=== PATIENT | male | born 1965 | race Hispanic/Latino ===

== ENCOUNTER 2024-04-30 17:46 | Emergency (ER) | payer OTHER, BC ==
[~2024-04-30] VITALS: Ht 182.9 cm; Wt 99.8 kg
[2024-04-30] MEDS ORDERED: KETO10TA2 PO (19:23)
[2024-04-30] MEDS ORDERED: METH-662 PO (19:23)
[2024-04-30] MEDS: morPHINE 2 MG SYG IVP ONE (19:27)
[2024-04-30] MEDS: ketOROlac 15MG/ML VIAL (15MG/ML) IV ONE (19:27)
[2024-04-30] MEDS: ORPHENADRINE 60MG/2ML IVP ONE (19:27)
--- NOTE | 2024-04-30 19:27 | ERN ---
General Chief Complaint: Neck Pain Stated Complaint: NECK PAIN Time Seen by MD: 18:04 Time Seen by Midlevel: 18:04 Source: patient History of Present Illness Initial Comments The patient is a 59-year-old male presenting to the emergency department with neck pain that has been ongoing for one month. Initially the patient had been seen by the PA earlier this month who prescribed him medications and temporary relief this pain. Today he reports the pain worsening. Denies any injury. He was currently pending an MRI of the neck for further evaluation. Patient is here for pain control Allergies: Coded Allergies: No Known Drug Allergies (Unverified Allergy, Unknown, 04/30/24) Home Meds Active Scripts Ketorolac Tromethamine (Ketorolac Tromethamine) 10 Mg Tablet, 1 TAB PO BID for pain for 5 Days, #10 TAB 0 Refills Prov:SALTY SCHULTZ 04/30/24 Methocarbamol (Robaxin) 750 Mg Tab, 1 TAB PO BID for 10 Days, #20 TAB 0 Refills Prov:SALTY SCHULTZ 04/30/24 Past Medical History Past Medical History: Diabetes-Type II, High Cholesterol Medical History Other: NECK PAIN Past Surgical History: None ROS Dictation CONSTITUTIONAL: Negative except for HPI HEAD/FACE: Negative except for HPI EENT: Negative except for HPI RESPIRATORY: Negative except for HPI GASTROINTESTINAL/ABDOMINAL: Negative except for HPI GENITOURINARY: Negative except for HPI MUSCULOSKELETAL: Negative except for HPI INTEGUMENTARY: Negative except for HPI NEUROLOGICAL/PSYCH: Negative except for HPI HEMATOLOGIC/LYMPHATIC: Negative except for HPI All Systems Negative, Except as noted above. 13 point review of systems assessed and all negative except for above. Physical Exam Physical Exam Dictation PHYSICAL EXAM: GENERAL: alert,, awake oriented x 3 HEENT: EOMI, Sclera non icteric, moist mucosa NECK: Supple, no JVD, trachea midline LUNGS: Clear breath sounds bilaterally. No wheezes HEART: Regular rate and rhythm. Normal S1 and S2, without murmurs ABD: Abdomen soft, nontender. Bowel sounds present EXT: No clubbing or cyanosis, NEURO: Alert and oriented to person, follows commands MSK: Paraspinal muscle tenderness to the cervical area, no midline tenderness, reproducible pain with movement MDM MDM: The patient is a 59-year-old male presenting to the emergency department with neck pain that has been ongoing for one month. Initially the patient had been seen by the PA earlier this month who prescribed him medications and temporary relief this pain. Today he reports the pain worsening. Denies any injury. He was currently pending an MRI of the neck for further evaluation. Patient is here for pain control. On physical examination the patient was in no acute distress. He was some paraspinal muscle tenderness to the cervical area, no midline tenderness. No signs of external trauma. Pain is reproducible with palpation and movement of the neck. Symptoms appear to be musculoskeletal in nature. He was no neurological deficits. Denies any numbness or tingling to upper extremities. He was 5/5 strength to bilateral upper extremities. Sensation is intact. Patient already had x-rays performed and is pending MRI. Patient is here for pain control. Patient was given IV Norflex, Toradol, and morphine. Patient will need to follow up outpatient for further evaluation. Differential diagnosis: Neck strain, cervical radiculopathy, musculoskeletal pain There are no social concerns with this patient. Prescription drug management Prescriptions will include: Toradol, Robaxin Medical management and examination interpretation discussions were had by me with other qualified healthcare professionals as indicated for the patient's care. ED Course Orders Procedure Category Date Status Time Orphenadrine Citrate PHA 04/30/24 Complete (Norflex) 18:30 Ketorolac PHA 04/30/24 Complete Tromethamine 15mg/Ml 18:30 Morphine 2mg Syg PHA 04/30/24 Complete (Morphine 2mg Syg) 18:30 Current Medications Medications (Trade) Dose Ordered Sig/Nathaniel Route PRN Reason Start Time Stop Time Status Last Admin Dose Admin Ketorolac Tromethamine (toRADol) 15 mg ONCE ONCE IV 04/30/24 18:30 04/30/24 18:31 DC 04/30/24 19:27 Morphine Sulfate (morPHINE 2MG SYG) 2 mg ONCE ONCE IVP 04/30/24 18:30 04/30/24 18:31 DC 04/30/24 19:27 Orphenadrine Citrate (Norflex) 60 mg ONCE ONCE IVP 04/30/24 18:30 04/30/24 18:31 DC 04/30/24 19:27 Vital Signs Date Time Temp Pulse Resp B/P (MAP) Pulse Ox O2 Delivery O2 Flow Rate FiO2 04/30/24 20:12 98.4 85 17 146/87 98 Room Air* 0 21 04/30/24 18:02 98.2 83 16 151/92 99 Room Air* 0 04/30/24 17:57 98.2 83 16 151/90 99 Room Air 0 DX & DISP Disposition: Discharge Departure Impression: Primary Impression: Strain of neck muscle Condition: Stable Scripts Ketorolac Tromethamine (Ketorolac Tromethamine) 10 Mg Tablet 1 TAB PO BID for pain for 5 Days, #10 TAB 0 Refills Prov: SALTY SCHULTZ 04/30/24 Methocarbamol (Robaxin) 750 Mg Tab 1 TAB PO BID for 10 Days, #20 TAB 0 Refills Prov: SALTY SCHULTZ 04/30/24 Additional Instructions: Your physical examination is consistent with musculoskeletal pain. [facility] I have given you a prescription for Robaxin and Toradol which should help improve your symptoms over the next couple of days. Return to the ER for any new or worsening symptoms Referrals: NONE (PCP) Time of Disposition: 19:21 I have reviewed the case, and I agree with, Diagnosis and Plan I performed the substantive portion of the visit. I have reviewed and pers onally made and approve the management plan that is documented in the note by myself or the LI[facility]. I acknowledge for responsibility for the patient's management plan. SALTY SCHULTZ Apr 30, 2024 19:27 JUDITH IZQUIERDO DO May 02, 2024 07:08
[2024-04-30 20:12] VITALS: BP 146/87; PULSE 85; RESP 17; TEMP 98.5; O2SAT 98
== END 2024-04-30 20:13 | disposition home or self-care (01) ==
LOC: EDH 17:46
DX: S16.1XXA Strain of muscle, fascia and tendon at neck level, initial encounter (principal); E78.00 Pure hypercholesterolemia, unspecified; E11.9 Type 2 diabetes mellitus without complications; Z79.899 Other long term (current) drug therapy; X58.XXXA Exposure to other specified factors, initial encounter; Y93.89 Activity, other specified; Y92.89 Other specified places as the place of occurrence of the external cause; Y99.8 Other external cause status
CPT/HCPCS: 99284; 96374; 96375; J1885; J2270; J2360